=== PATIENT | female | born 1935 | race Caucasian/White ===

== ENCOUNTER 2018-12-05 14:32 | Inpatient (IN) | payer MEDICARE ==
[~2018-12-05] VITALS: Ht 170.2 cm; Wt 54.9 kg
[~2018-12-05 14:32] MED LIST: ASPI-1152 PO; DOCU-270 PO; FLEC100T2 PO; METO25TA6 PO
[2018-12-05] MEDS ORDERED: IOHEXOL-350 100 ML VIAL IV ONE (14:49)
[2018-12-05 14:51] LABS: BASOPHILS # (AUTO) 0.1 /CMM (0.0-0.2); BASOPHILS % (AUTO) 0.9 % (0.0-2.0); EOSINOPHILS % (AUTO) 3.5 % (0.0-6.0); HEMATOCRIT 37 % (33-45); HEMOGLOBIN 12.5 g/dL (11.5-14.8); LYMPHOCYTES # (AUTO) 2.6 /CMM (0.8-4.8); LYMPHOCYTES % (AUTO) 34.5 % (20.0-44.0); MEAN CORPUSCULAR HGB CONC 34 g/dl (31.0-36.0); MEAN CORPUSCULAR VOLUME 90 fL (82-100); MONOCYTES # (AUTO) 0.6 /CMM (0.1-1.30); MONOCYTES % (AUTO) 8.5 % (2.0-12.0); NEUTROPHILS # (AUTO) 3.9 /CMM (1.8-8.9); NEUTROPHILS % (AUTO) 52.6 % (43.0-81.0); PLATELET COUNT (AUTO) 246 /CMM (150-450); WHITE BLOOD COUNT (AUTO) 7.5 K/uL (4.3-11.0)
[2018-12-05] MEDS ORDERED: METO-356 PO (14:55)
[2018-12-05] MEDS ORDERED: BIMA2.5D5 EACHEYE (14:55)
[2018-12-05] MEDS ORDERED: RIVA10TA PO (14:55)
[2018-12-05] MEDS ORDERED: AMLO5TAB9 PO (14:55)
[2018-12-05 15:01] LABS: CALCIUM, SERUM 9.4 mg/dL (8.5-10.1); CARBON DIOXIDE 27 mmol/L (21-32); CHLORIDE 98 mmol/L (98-107); CREATININE 0.8 mg/dL (0.6-1.3); GLUCOSE 90 mg/dL (74-106); POTASSIUM 4.5 mmol/L (3.5-5.1); SODIUM SERUM 134 mmol/L (136-145); UREA NITROGEN, BLOOD 15 mg/dL (7-18)
[2018-12-05 15:25] LABS: CHOLESTEROL 167 mg/dL (<200); HDL CHOLESTEROL 52 mg/dL (40-60); LDL 97 mg/dL (0-99); TRIGLYCERIDES 164 mg/dL (30-150)
[2018-12-05 16:03] LABS: THYROID STIMULATING HORMONE 2.649 uIU/mL (0.358-3.74)
[2018-12-05] MEDS ORDERED: RIVAROXABAN 10 MG TABLET PO SCH (17:00)
[2018-12-05] MEDS ORDERED: BLOOD SUGAR DIAGNOSTIC 1 EACH STRIP IN SCH (17:30)
[2018-12-05] MEDS: BLOOD SUGAR DIAGNOSTIC 1 EACH STRIP IN SCH (17:59)
[2018-12-05 20:00] VITALS: BP 132/68
[2018-12-05] MEDS ORDERED: LATANOPROST EYE DROP 0.005% 2.5 ML BOTTLE OP SCH (22:00)
[2018-12-06] VITALS: BP 137/69
[2018-12-06] MEDS: BLOOD SUGAR DIAGNOSTIC 1 EACH STRIP IN SCH ×2 (00:03→06:02)
[2018-12-06 04:00] VITALS: BP 103/54
[2018-12-06 06:26] LABS: BASOPHILS # (AUTO) 0.1 /CMM (0.0-0.2); BASOPHILS % (AUTO) 0.9 % (0.0-2.0); HEMATOCRIT 39 % (33-45); MEAN CORPUSCULAR HGB CONC 34 g/dl (31.0-36.0); MEAN CORPUSCULAR VOLUME 90 fL (82-100); MONOCYTES # (AUTO) 0.6 /CMM (0.1-1.30); MONOCYTES % (AUTO) 9.1 % (2.0-12.0); NEUTROPHILS # (AUTO) 3.2 /CMM (1.8-8.9); PLATELET COUNT (AUTO) 246 /CMM (150-450); RED BLOOD CELL COUNT(AUTO) 4.28 MIL/uL (4.0-5.2); WHITE BLOOD COUNT (AUTO) 6.2 K/uL (4.3-11.0)
[2018-12-06 06:42] LABS: CALCIUM, SERUM 9.3 mg/dL (8.5-10.1); CREATININE 0.9 mg/dL (0.6-1.3); POTASSIUM 4.5 mmol/L (3.5-5.1)
[2018-12-06 08:00] VITALS: BP 119/65
[2018-12-06] MEDS: AMLODIPINE BESYLATE 5 MG TABLET PO SCH ×2 (08:54→09:00)
[2018-12-06] MEDS: METOPROLOL SUCCINATE 25 MG TAB.SR.24H PO SCH ×2 (08:55→09:00)
[2018-12-06] MEDS: FLECAINIDE ACETATE (100 MG) 100 MG TABLET PO SCH ×2 (08:55→09:00)
[2018-12-06 09:00] VITALS: BP 119/65
[2018-12-06] MEDS ORDERED: RIVAROXABAN 10 MG TABLET PO SCH (17:00)
[2018-12-06] MEDS ORDERED: RIVAROXABAN 15 MG TABLET PO SCH (17:00)
== END 2018-12-06 10:40 | disposition home or self-care (01) | DRG 69 ==
LOC: ER 14:32 → TELE 15:39 → MED 12-06 08:51
PROVIDERS: ADMIT Nurse Practitioner Acute Care; ATTEND Nurse Practitioner Acute Care
DX: G45.9 Transient cerebral ischemic attack, unspecified (principal); E87.1 Hypo-osmolality and hyponatremia; D68.59 Other primary thrombophilia; H40.9 Unspecified glaucoma; I10 Essential (primary) hypertension; I48.0 Paroxysmal atrial fibrillation; Z95.0 Presence of cardiac pacemaker; R29.700 NIHSS score 0; Z82.3 Family history of stroke; Z79.01 Long term (current) use of anticoagulants; I35.0 Nonrheumatic aortic (valve) stenosis; R20.0 Anesthesia of skin; R47.1 Dysarthria and anarthria; I70.90 Unspecified atherosclerosis
CPT/HCPCS: 36415; 70450-TC; 70496-TC; 70498-TC; 71045-TC; 80048-TC; 80061-TC; 82962-TC; 83880; 84443-TC; 84484-TC; 85025-TC; 85652-TC; 85730-TC; 87081-TC; 93307-TC; G0378; Q9967